=== PATIENT | female | born 1990 | race Caucasian/White ===

== ENCOUNTER 2018-11-04 23:29 | Emergency (ER) | payer SELFPAY ==
[~2018-11-04] VITALS: Ht 154.9 cm; Wt 74.0 kg
[2018-11-04 23:37] VITALS: Ht 154.9 cm; Wt 74.0 kg
[2018-11-05] MEDS ORDERED: ACETAMINOPHEN 325 MG TAB PO STA (00:40)
[2018-11-05] MEDS ORDERED: ONDANSETRON (ODT) 4 MG TAB ODT STA (04:08)
[2018-11-05] MEDS ORDERED: morphine 2 MG INJ IV STA (04:08)
[2018-11-05] MEDS ORDERED: HYDROCODONE/APAP (5/325) TAB PO ONE (04:30)
[2018-11-05] MEDS ORDERED: SOD CHLORIDE 0.9% 1,000 ML IV ONE (04:30)
[2018-11-05] MEDS ORDERED: CEPH-443 PO (05:37)
[2018-11-05 05:52] VITALS: BP 119/75; PULSE 80; RESP 17
--- NOTE | 2018-11-05 06:49 | ERD ---
ER Documentation Chief Complaint Chief Complaint Pt reports 5wks preg bleeding x 2 hours with pain HPI History of Present Illness: 28-year-old female with no known past medical history coming in today due to vaginal bleeding during . Patient reports being approximately 5 weeks . Patient reported bleeding started approximately 2 hours prior to arrival with pelvic pain associated with it. Denies any other associated symptoms. Denies dizziness, fever, weakness. Patient is reporting some clots with bleeding. Denies At home pharmacological/nonpharmacological treatment for symptoms: Denies Denies social concerns; Denies recent foreign travel ROS All systems reviewed and are negative except as per history of present illness. Medications Home Meds Active Scripts Cephalexin* (Keflex*) 500 Mg Capsule, 500 MG PO QID for BACTERIA IN URINE for 5 Days, CAP Prov:DAVID HURLEY NP 11/05/18 Allergies Allergies: Coded Allergies: No Known Allergy (Unverified , 11/04/18) PMhx/Soc Medical and Surgical Hx: pt denies Medical Hx, pt denies Surgical Hx Hx Alcohol Use: No Hx Substance Use: No Hx Tobacco Use: No Smoking Status: Never smoker FmHx Family History: No coronary disease Physical Exam Vitals Vital Signs Date Temp Pulse Resp B/P (MAP) Pulse Ox O2 O2 Flow FiO2 Time Delivery Rate 11/05/18 98.7 80 17 119/75 98 Room Air 05:52 (90) 11/05/18 98.7 77 18 125/87 100 Room Air 04:31 (100) 11/04/18 98.9 90 16 138/87 99 23:37 (104) Physical Exam Const: No acute distress Head: Atraumatic Eyes: Normal Conjunctiva ENT: Normal External Ears, Nose and Mouth. Neck: Full range of motion. No meningismus. Resp: Clear to auscultation bilaterally Cardio: Regular rate and rhythm, no murmurs Abd: Soft, suprapubic tenderness, non distended. Normal bowel sounds Skin: No petechiae or rashes Back: No midline or flank tenderness Ext: No cyanosis, or edema Neur: Awake and alert Psych: Normal Mood and Affect Pelvic Exam: Referral Agent present Abdomen: Mild tenderness to suprapubic External Genitalia: Normal Skin, dried blood Speculum: Normal vaginal mucosa, blood noted to the vaginal canal, OS mildly open, no clots noted to vaginal OS Bimanual: No adnexal masses or tenderness, No CMT Result Diagram: 11/05/18 0132 Results 24 hrs Laboratory Tests Test 11/05/18 01:32 White Blood Count 12.8 10^3/ul Red Blood Count 4.93 10^6/ul Hemoglobin 15.3 g/dl Hematocrit 44.7 % Mean Corpuscular Volume 90.7 fl Mean Corpuscular Hemoglobin 31.0 pg Mean Corpuscular Hemoglobin Concent 34.2 g/dl Red Cell Distribution Width 13.2 % Platelet Count 266 10^3/UL Mean Platelet Volume 10.4 fl Immature Granulocytes % 0.500 % Neutrophils % 73.6 % Lymphocytes % 17.1 % Monocytes % 7.4 % Eosinophils % 0.9 % Basophils % 0.5 % Nucleated Red Blood Cells % 0.0 /100WBC Immature Granulocytes # 0.060 10^3/ul Neutrophils # 9.4 10^3/ul Lymphocytes # 2.2 10^3/ul Monocytes # 1.0 10^3/ul Eosinophils # 0.1 10^3/ul Basophils # 0.1 10^3/ul Nucleated Red Blood Cells # 0.0 10^3/ul Urine Color STRAW Urine Clarity CLEAR Urine pH 6.0 Urine Specific [place] 1.004 Urine Ketones NEGATIVE mg/dL Urine Nitrite NEGATIVE mg/dL Urine Bilirubin NEGATIVE mg/dL Urine Urobilinogen NEGATIVE mg/dL Urine Leukocyte Esterase NEGATIVE Edd/ul Urine Microscopic RBC 44 /HPF Urine Microscopic WBC 2 /HPF Urine Bacteria FEW /HPF Urine Hemoglobin 3+ mg/dL Urine Glucose NEGATIVE mg/dL Urine Total Protein NEGATIVE mg/dl Beta HCG, Quantitative 11146.0 mIU/ml Current Medications Medications Dose Sig/Buck Start Time Status Last (Trade) Ordered Route PRN Stop Time Admin Dose Reason Admin 1,000 mg ONCE STAT 11/05/18 DC 11/05/18 Acetaminophen PO 00:40 01:23 (Tylenol 11/05/18 00:41 Tab) 1 tab ONCE ONCE 11/05/18 DC 11/05/18 Acetaminophen PO 04:30 04:22 / 11/05/18 04:31 Hydrocodone Bitart ([place] (5/325)) Ondansetron 4 mg ONCE STAT 11/05/18 DC 11/05/18 HCl (Zofran ODT 04:08 04:22 Odt) 4/14/19 04:10 Morphine 2 mg ONCE STAT 11/05/18 DC 11/05/18 Sulfate IV 04:08 04:22 (morphine) 11/05/18 04:10 Sodium 1,000 ml @ Q1H ONCE 11/05/18 DC 11/05/18 Chloride 1,000 mls/hr IV 04:30 04:19 11/05/18 05:29 Procedures/MDM ED course includes a thorough examination and history. Medications: IV NS, morphine, [place], Zofran Imaging: OB ultrasound abdominal and transvaginal Labs: CBC, CMP, urinalysis, beta quantitative Low suspicion for life-threatening medical emergency. Low suspicion for gynecological or acute abdominal emergency hospitalization or immediate surgical intervention. Otherwise healthy patient presenting with constellation of symptoms likely representing spontaneous as characterized by history, physical exam findings, lab findings, imaging findings. Urinalysis with some bacteria, positive RBCs and hemoglobin. CBC with mild leukocytosis, likely related to . Beta quantitative is 10k. Ultrasound imaging results showing: IMPRESSION: No intrauterine gestational sac identified. Thickened and heterogeneous endometrium which could be due to in progress. No visualized ectopic but ectopic cannot be excluded. Correlate with Beta HCG. RPTAT: HLBE Mariya Wilson Physician Patient reassessment : Patient reports changing of 3 pads since coming to ER. No signs of hemorrhage. Patient hemodynamically stable. Patient denies pain. Follow-up and return precautions given. Recommended 48-72-hour prior evaluation for repeat beta quantitative and possible ultrasound. No respiratory distress, otherwise relatively well appearing and nontoxic. Patient educated on diagnoses, prescriptions, follow-up care, return precautions. Strict return precautions given for worsening condition; questions answered discharge. Disposition for discharge with followup in 2 days with PCP/clinic. Departure Diagnosis: Primary Impression: Bacteria in urine Additional Impression: Spontaneous in first trimester Condition: Stable Patient Instructions: Urinary Tract Infections in Women, Miscarriage Referrals: COMMUNITY CLINICS YOU HAVE RECEIVED A MEDICAL SCREENING EXAM AND THE RESULTS INDICATE THAT YOU DO NOT HAVE A CONDITION THAT REQUIRES URGENT TREATMENT IN THE EMERGENCY DEPARTMENT. FURTHER EVALUATION AND TREATMENT OF YOUR CONDITION CAN WAIT UNTIL YOU ARE SEEN I N YOUR DOCTORS OFFICE WITHIN THE NEXT 1-2 DAYS. IT IS YOUR RESPONSIBILITY TO MAKE AN APPOINTMENT FOR FOLOW-UP CARE. IF YOU HAVE A PRIMARY DOCTOR --you should call your primary doctor and schedule an appointment IF YOU DO NOT HAVE A PRIMARY DOCTOR YOU CAN CALL OUR PHYSICIAN REFERRAL HOTLINE AT IF YOU CAN NOT AFFORD TO SEE A PHYSICIAN YOU CAN CHOSE FROM THE FOLLOWING [facility] [address] [facility] [address] [facility] [address] [facility] [address] [facility] [address] [facility]. [facility] [address] [facility]. [facility] YOU HAVE RECEIVED A MEDICAL SCREENING EXAM AND THE RESULTS INDICATE THAT YOU DO NOT HAVE A CONDITION THAT REQUIRES URGENT TREATMENT IN THE EMERGENCY DEPARTMENT. FURTHER EVALUATION AND TREATMENT OF YOUR CONDITION CAN WAIT UNTIL YOU ARE SEEN IN YOUR DOCTORS OFFICE WITHIN THE NEXT 1-2 DAYS. IT IS YOUR RESPONSIBILITY TO MAKE AN APPOINTMENT FOR FOLOW-UP CARE. IF YOU HAVE A PRIMARY DOCTOR --you should call your primary doctor and schedule and appointment IF YOU DO NOT HAVE A PRIMARY DOCTOR YOU CAN CALL OUR PHYSICIAN REFERRAL HOTLINE AT . IF YOU CAN NOT AFFORD TO SEE A PHYSICIAN YOU CAN CHOSE FROM THE FOLLOWING COUNT INCLUDES THE [facility] INSTITUTIONS: [facility] [address] [place] [address] [facility] [address] [place] [address] [facility] [address] [place] [address] [place] [address] [facility] [address] [place] [address] OFFICE FAX DALIA ACOSTA [address] [place] [address] [facility] [address] [place] [address] [address] WRIGHT, HESHMAT [address], [place] [address] [address] JOLLY, CARMELLAROOZ [address], [place] [address] [facility] [address] [facility] [place] [address] [address] [facility] [address] [address] HUMPHRIES, KAMALA [address] [facility] [address] [address] [place] [address] [facility]. [address], [facility] [address] [address] DAMIAN, [facility] [address] [place] [address] Additional Instructions: Thank you very much for allowing us to participate in your care. Your health and safety is our top priority at [facility]. It is important to read all discharge instructions and education provided in your discharge packet. Call your primary care doctor TOMORROW for an appointment during the next 48-72 HOURS days and bring all the information given to your ER discharge visit. You will need a repeat beta quantitative test and a possible ultrasound. If the symptoms get worse and your provider is unavailable, return to the Emergency Department immediately. If you develop severe abdominal pain, fever, soaking more than 1 pad per hour, weakness, passing out; return to emergency room immediately. DAVID HURLEY NP Nov 05, 2018 06:49
== END 2018-11-05 05:52 | disposition home or self-care (01) ==
LOC: FTE 23:29
DX: O20.0 Threatened abortion (principal); O23.41 Unspecified infection of urinary tract in pregnancy, first trimester; R10.2 Pelvic and perineal pain; Z3A.01 Less than 8 weeks gestation of pregnancy
CPT/HCPCS: 36415; 76801; 76817; 81001; 84702; 85025; 86900; 86901; 96374; 99285; J2270; J7030